=== PATIENT | female | born 1955 | race Caucasian/White ===

== ENCOUNTER 2016-08-20 21:59 | Emergency (ER) | payer OTHER, MEDICAID ==
[2016-08-20 22:10] VITALS: BP 159/86; BMI 22.1
[2016-08-20 23:02] LABS: CKMB % 2.2 % (<4); CREATINE KINASE 46 Units/L (26-192); CREATINE KINASE MB < 1.0 ng/mL (0-4.0); TROPONIN I < 0.02 ng/mL (0-1.5)
--- NOTE | 2016-08-20 23:03 | RAD ---
EXAM: Chest X-ray INDICATION: Chest pain COMPARISION: Prior exam from December 11, 2011 TECHNIQUE: AP, single view FINDINGS: The lungs are clear in the lung volumes are within normal limits. No pleural effusion or pneumothora x. The cardiac silhouette and mediastinum are normal. The regional skeleton is intact. IMPRESSION: Normal Chest X-Ray Reported By:
--- NOTE | 2016-08-20 23:21 | DR.CP ---
HPI - Time Seen Time seen: 23:00 - PCP Primary Care Physician: SIMON - HPI Comment HPI Comment: HISTORY BELOW. PAIN NOT COMPLETELY GONE BUT MUCH IMPROVE. - Complaint Chief Complaint Doctor Comments: EPIGASTRIC PAIN RADIATING TO LT ARM FOR 2 HRS. RESOLVE WITH ANTACIDS. HAVE 3.5CM STABLE AORTIC ANEURYSM. PENDING CHECK IN THIS YEAR. NO HISTORY OF INTERMITTENT CLAUDICATIONS. HAD NAUSEA AND SLIGHT SOB TONIGHT. Chief Complaint:: CHEST PRESSURE / EPIGASTRIC FOR 2 HOURS AND LEFT ARM NUMBNESS. I DO HAVE BAD ACID REFLUX. I HAVE A AORTIC ANEURYSM TOO. Self Treatment fo Chief Complaint: ASPIRIN, ACID REFLUX MEDS - Reviewed Nurses Notes Review: Yes - Source History Provided: Patient - Mode of Arrival Mode of Arrival: Ambulatory - Timing Onset of Chief Complaint: 08/20/16 Came on: Suddenly - Duration Duration: Since Onset Duration: Days - Location Chest Pain Radiation Location: Left Jaw, Left Arm (AND HAND) - Context Onset: At rest Cardiac Risk Factors: Smoker PE Risk Factors: None History of: Similar pain in the past, Aspirin in last 24 hours Prehospital Care: None - Quality Quality: Pressure like - Severity Severity: Moderate - Modifying Factors Worsens: Nothing Impoves: Nothing - Associated Signs and Symptoms Associated Signs and Symptoms: Other PMH - PMH Past Medical History: Yes Past Medical History: Anxiety, Depression, GERD, Headaches, Hypertension, Hyperthyroidism, PUD Past Medical History Comment: AORTIC ANEURYSM Past Surgical History: Yes Surgical History: , Hysterectomy - Family History History of Family Medical Conditions: Yes Family Medical History: Diabetes Mellitus, Cancer, [place], Coronary Artery Disease, Sudden Cardiac , Hypertension - Social History Type of Tobacco Use: Cigarettes Alcohol Use: None Do you use any recreational Drugs:: No Lives With: Alone Lives Where: Home - infectious screening Have you traveled outside the country in the last 6 months?: No Isolation: Standard ROS - Review of Systems Constitutional: No Symptoms Reported Eyes: No Symptoms Reported ENTM: No Symptoms Reported Respiratoy: No Symptoms Reported Cardiovascular: Chest Pain Genitourinary: No Symptoms Reported Neurological: No Symptoms Reported. negative: Headache, Weakness, Dizziness Musculoskeletal: No Symptoms Reported Integumentary: No Symptoms Reported Hematologic/Lymphatic: No Symptoms Reported Endocrine: No Symptoms Reported All Other Systems: Reviewed and Negative PE - Vitals Vitals: Temperature 98.1 F Pulse Rate 65 Respiratory Rate 20 Blood Pressure [Left Arm] 174/81 Blood Pressure 159/86 O2 Sat by Pulse Oximetry 100 - General Limitations: No Limitations General Appearance: Alert - Head Head Exam: Normal Inspection - Eyes Eye exam: Normal Appearance - ENT ENT Exam: Normal External Ear Exam - Chest Chest Inspection: Symmetric Chest Wall Rise - Respiratory Respiratory Exam: Normal Lung Sounds Bilat Respiratory Exam: Bilateral Clear to Auscultation - Cardiovascular Cardiovascular Exam: Regular Rate, Normal Rhythm, Normal Heart Sounds - Abdominal Exam Abdominal Exam: Normal Inspection, Normal Bowel Sounds. negative: Tenderness - Extremities Extremities Exam: Normal Inspection - Back Back Exam: Normal Inspection - Neurologic Neurological Exam: Alert, Oriented X3, CN II-XII Intact, Normal Gait, Reflexes Normal. negative: Motor Sensory Deficit - Psychiatric Psychiatric Exam: Normal Affect, Normal Mood - Skin Skin Exam: Normal Color MDM - Differential Diagnosis Differential Diagnosis: Angina, Costochondritis, Esophageal Reflux/Spasm, Gastritis, Myocardial Infarction, Pericarditis, Pleuritis, Pancreatitis, Pneumonia, Pneumothorax Course - Treatment Treatment: SEE ORDERS, PATIENT SIGN AMA. DID NOT WISH TO STAY FOR OBSERVATION IN THE HOSPITAL. - Education/Counseling Education/Counseling: Patient, Family, Education Educated On: Diagnosis, Needs for Follow Up ROR - Labs Reviewed Laboratory Results Reviewed?: Yes Laboratory: Creatine Kinase 46 Units/L (26-192) 08/20/16 22:30 CK-MB (CK-2) < 1.0 ng/mL (0-4.0) 08/20/16 22:30 CK/CKMB % Calc 2.2 % (<4) 08/20/16 22:30 Troponin I < 0.02 ng/mL (0-1.5) 08/20/16 22:30 - XRAY XRAY Interpreted by: Radiologist XRAY Findings: REPORT DISCUSS WITH PATIENT. - EKG Rhythm: NSR (EKG NOTED.) - Diagnosis Discharge Problem: Chest pain Qualifiers: Chest pain type: unspecified Qualified Code(s): R07.9 - Chest pain, unspecified - Discharge Plan Disposition: AGAINST MEDICAL ADVICE Condition: Stable - Follow ups/Referrals Follow ups/Referrals: JOSELIN MONTES [Primary Care Provider] - 3 days - Instructions Instructions: Chest Pain Observation Additional Instructions: RETURN TO ED SOON POSSIBLE. YOU ARE DISCHARGE AGAINST MEDICAL ADVICE. OBSERVATION IN THE HOSPITAL FOR CHEST PRESSURE GOING INTO YOUR LEFT ARM. YOU WISH TO GO HOME.
== END 2016-08-20 23:36 | disposition left against medical advice (07) ==
LOC: ER 21:59
DX: R07.89 Other chest pain (principal)
CPT/HCPCS: 36415; 71010; 82550; 82553; 84484; 93005; 93010; 99283

== ENCOUNTER 2017-02-10 21:05 | Emergency (ER) | payer OTHER, MEDICAID ==
[2017-02-10 21:16] VITALS: BMI 22.6
--- NOTE | 2017-02-10 21:34 | DR.GENAD ---
HPI - PCP Primary Care Physician: naveed etienne - HPI Comment HPI Comment: PATIENT HAVE ARTHRTIS AND PREVIOUS NECK SURGERY. SHE DID HIT HER HEAD WHEN SHE FELL. TOOK ASPRIN AND HER PAIN MED BEFORWE COMING. HAVE SLIGH PRESSURE IN HER CHEST STILL. PAIN IN HER ARMS IS RESOLVE CURRENTLY. NO FEVER. - Complaint/Symptoms Chief Complaint Doctors Comments: NUMNESS ARMS FOR FEW HOURS.FELL FEW DAYS AGO, HEADACHE AND INCREASING NEC PAIN. Chief Complaint:: thinks she may be having a stroke or some nerve problems, right arm went numb first then left arm went numb and shoulders are real tense also having chest pain. started 3 hours ago Self Treatment fo Chief Complaint: aspirin 81mg 30 mins ago, 1/2 of hydrocodone 7.5mg ang 1 otc aleve - Nurses notes reviewed Nurses Notes Review: Yes - Source History Provided: Patient - Mode of Arrival Mode of Arrival: Wheelchair - Timing Onset of Chief Complaint: 02/10/17 Came on: Suddenly - Duration Duration: Since Onset Duration: Hours - Severity Severity: Moderate PMH - PMH Past Medical History: Yes Past Medical History: Anxiety, Depression, GERD, Headaches, Hypertension, Hyperthyroidism, PUD Past Surgical History: Yes Surgical History: , Cholecystectomy, Hysterectomy, Joint Replacement - Family History History of Family Medical Conditions: Yes Family Medical History: Diabetes Mellitus, Cancer, [place], Coronary Artery Disease, Sudden Cardiac , Hypertension - Social History Does patient currently use any type of tobacco product: Yes Have you used tobacco products in the last 12 months: Yes Type of Tobacco Use: Cigarettes How many years tobacco product used: 40 Does any household member use tobacco: No Alcohol Use: None Do you use any recreational Drugs:: No Lives With: Alone Lives Where: Home - infectious screening In the last 2 months have you had wt loss of >10#?: NO Have you had fever, night sweats or hemotysis?: No Have you traveled outside the country in the last 6 months?: No Isolation: Standard ROS - Review of Systems Constitutional: Weakness, Fatigue. negative: Chills, Fever Eyes: negative: Eye Pain, Discharge ENTM: negative: Ear Pain, Nose Discharge, Nose Congestion, Throat Pain Respiratoy: Short of Breath. negative: Productive Cough, Non-Productive Cough, Wheezing, Hemoptysis Cardiovascular: Chest Pain. negative: Edema, Palpitations Gastrointestinal/Abdominal: No Symptoms Reported. negative: Abdominal Pain, Diarrhea, Nausea, Vomiting Genitourinary: No Symptoms Reported. negative: Dysuria, Frequency, Hematuria Neurological: Headache, Numbness, Paresthesia, Weakness Musculoskeletal: Joint Pain, Muscle Pain Integumentary: No Symptoms Reported Hematologic/Lymphatic: No Symptoms Reported Endocrine: No Symptoms Reported All Other Systems: Reviewed and Negative PE - Vital Signs Vitals: Temperature 98.5 F Pulse Rate [Left Brachial] 61 Pulse Rate 81 Respiratory Rate 16 Blood Pressure [Left Arm] 137/63 Blood Pressure 169/95 O2 Sat by Pulse Oximetry 100 - General Limitations: No Limitations General Appearance: Alert - Head Head Exam: Normal Inspection - Eyes Eye exam: Normal Appearance - ENT ENT Exam: Normal External Ear Exam TM/Canal Exam: Bilateral Normal Mouth Exam: Normal Inspection Throat Exam: Normal Inspection - Neck Neck Exam: Tenderness (POSERIOR LOWER NECK TENDERNESS, TENSE PARAVERTEBRA MUSCLES.) - Chest Chest Inspection: Symmetric Chest Wall Rise - Respiratory Respiratory Exam: Normal Lung Sounds Bilat Respiratory Exam: Bilateral Rhonchi, Lower Rhonchi - Cardiovascular Cardiovascular Exam: Regular Rate, Normal Rhythm, Normal Heart Sounds - Abdominal Exam Abdominal Exam: Normal Inspection - Extremities Extremities Exam: Normal Inspection - Back Back Exam: Paraspinal Tenderness (NECK), Vertebral Tenderness (LOWER CERVICAL SPINE) - Neurologic Neurological Exam: Alert, Oriented X3, CN II-XII Intact, Normal Gait, Reflexes Normal. negative: Motor Sensory Deficit - Psychiatric Psychiatric Exam: Normal Affect, Normal Mood - Skin Skin Exam: Normal Color MDM - Additional Information Additional Information Obtained From: Family - Differential Diagnosis Differential Diagnosis: NECK PAIN, HEADACHE, ARTHRITIS, HEAD TRAUMA, NECK TRAUMA Course - Treatment Treatment: SEE ORDERS - Education/Counseling Education/Counseling: Patient, Family, Education Educated On: Diagnosis, Needs for Follow Up ROR - Labs Reviewed Laboratory Results Reviewed?: Yes Result Diagrams: 02/10/17 21:40 02/10/17 21:40 Laboratory: WBC 9.4 X10^3/uL (3.6-10.0) 02/10/17 21:40 RBC 4.35 X10^6/uL (3.5-5.4) 02/10/17 21:40 Hgb 13.0 g/dL (12.0-16.0) 02/10/17 21:40 Hct 38.0 % (36.0-47.0) 02/10/17 21:40 MCV 87.3 fL (80.0-100.0) 02/10/17 21:40 MCH 29.8 pg (27.0-34.0) 02/10/17 21:40 MCHC 34.1 g/dL (33.0-35.0) 02/10/17 21:40 RDW 13.1 % (11.6-16.5) 02/10/17 21:40 Plt Count 170 X10^3/uL (150.0-450.0) 02/10/17 21:40 MPV 10.4 fL (7.4-11.0) 02/10/17 21:40 Neut % 40.8 % (42.0-75.0) L 02/10/17 21:40 Lymph % 46.9 % (21.0-51.0) 02/10/17 21:40 [place] % 8.5 % (0.0-13.0) 02/10/17 21:40 Eos % 3.3 % (0.9-2.9) H 02/10/17 21:40 Baso % 0.5 % (0.2-1.0) 02/10/17 21:40 Neut # 3.8 x10^3/uL (2.2-4.8) 02/10/17 21:40 Lymph # 4.4 X10^3/uL (1.3-2.9) H 02/10/17 21:40 [place] # 0.8 x10^3/uL (0.3-0.8) 02/10/17 21:40 Eos # 0.3 x10^3/uL (0.0-0.2) H 02/10/17 21:40 Baso # 0.0 X10^3/uL (0.0-0.1) 02/10/17 21:40 Absolute Nucleated RBC 0.0 /100WBC 02/10/17 21:40 Sodium 142 mmol/L (136-145) 02/10/17 21:40 Corrected Sodium TNP 02/10/17 21:40 Potassium 3.8 mmol/L (3.5-5.1) 02/10/17 21:40 Chloride 105 mmol/L (98-107) 02/10/17 21:40 Carbon Dioxide 30.9 mmol/L (21-32) 02/10/17 21:40 BUN 6 mg/dL (7-18) L 02/10/17 21:40 Creatinine 0.95 mg/dL (0.55-1.02) 02/10/17 21:40 Est GFR (MDRD) Af Amer > 60 (>60) 02/10/17 21:40 Est GFR (MDRD) Non-Af > 60 (>60) 02/10/17 21:40 Glucose 101 mg/dL (65-99) H 02/10/17 21:40 Calcium 8.9 mg/dL (8.5-10.1) 02/10/17 21:40 Corrected Calcium TNP 02/10/17 21:40 Total Bilirubin 0.20 mg/dL (0.2-1.0) 02/10/17 21:40 AST 18 Units/L (15-37) 02/10/17 21:40 ALT 18 Units/L (12-78) 02/10/17 21:40 Alkaline Phosphatase 79 Units/L (46-116) 02/10/17 21:40 Creatine Kinase 107 Units/L (26-192) 02/10/17 21:40 CK-MB (CK-2) 1.0 ng/mL (0-4.0) 02/10/17 21:40 CK/CKMB % Calc 0.9 % (<4) 02/10/17 21:40 Troponin I < 0.02 ng/mL (0-1.5) 02/10/17 21:40 Total Protein 6.9 g/dL (6.4-8.2) 02/10/17 21:40 Albumin 3.8 g/dL (3.4-5.0) 02/10/17 21:40 Globulin 3.1 g/dL (2.5-4.5) 02/10/17 21:40 Albumin/Globulin Ratio 1.2 Ratio (1.1-2.1) 02/10/17 21:40 - XRAY XRAY Interpreted by: Radiologist XRAY Findings: REPORT DISCUSS WITH PATIENT. - Diagnosis Discharge Problem: Numbness and tingling Chest pain Qualifiers: Chest pain type: precordial pain Qualified Code(s): R07.2 - Precordial pain Head trauma Qualifiers: Encounter type: initial encounter Qualified Code(s): S09.90XA - Unspecified injury of head, initial encounter Neck sprain Qualifiers: Encounter type: initial encounter Qualified Code(s): S13.9XXA - Sprain of joints and ligaments of unspecified parts of neck, initial encounter - Discharge Plan Disposition: HOME, SELF-CARE Condition: Stable - Follow ups/Referrals Follow ups/Referrals: MATIAS ETIENNE [Primary Care Provider] - 3 days - Instructions Instructions: Peripheral Neuropathy, Chest Pain Observation Additional Instructions: RETURN TO ED IF WORSE, CONTINUE WITH MED AT HOME FOR MUSCULOSKELETAL PAIN.
[2017-02-10 21:59] LABS: BASOPHILS % (AUTO) 0.5 % (0.2-1.0); EOSINOPHILS # (AUTO) 0.3 x10^3/uL (0.0-0.2); EOSINOPHILS % (AUTO) 3.3 % (0.9-2.9); LYMPHOCYTES # (AUTO) 4.4 X10^3/uL (1.3-2.9); LYMPHOCYTES % (AUTO) 46.9 % (21.0-51.0); MEAN CORPUSCULAR HEMOGLOBIN 29.8 pg (27.0-34.0); MEAN CORPUSCULAR HGB CONC 34.1 g/dL (33.0-35.0); MEAN CORPUSCULAR VOLUME 87.3 fL (80.0-100.0); MEAN PLATELET VOLUME 10.4 fL (7.4-11.0); MONOCYTES # (AUTO) 0.8 x10^3/uL (0.3-0.8); MONOCYTES % (AUTO) 8.5 % (0.0-13.0); NEUTROPHILS # (AUTO) 3.8 x10^3/uL (2.2-4.8); NEUTROPHILS % (AUTO) 40.8 % (42.0-75.0); PLATELET COUNT 170 X10^3/uL (150.0-450.0); RED BLOOD COUNT 4.35 X10^6/uL (3.5-5.4); RED CELL DISTRIBUTION WIDTH 13.1 % (11.6-16.5); WHITE BLOOD COUNT 9.4 X10^3/uL (3.6-10.0)
[2017-02-10 22:13] LABS: BLOOD UREA NITROGEN 6 mg/dL (7-18); CALCIUM 8.9 mg/dL (8.5-10.1); CARBON DIOXIDE 30.9 mmol/L (21-32); CHLORIDE 105 mmol/L (98-107); CREATININE 0.95 mg/dL (0.55-1.02); SODIUM 142 mmol/L (136-145); TROPONIN I < 0.02 ng/mL (0-1.5); eGFR BLACK RACES > 60 (>60); eGFR NON BLACK RACES > 60 (>60)
[2017-02-10 22:17] LABS: ALANINE AMINOTRANSFERASE 18 Units/L (12-78); ALBUMIN 3.8 g/dL (3.4-5.0); ALKALINE PHOSPHATASE 79 Units/L (46-116); ASPARTATE AMINO TRANSFERASE 18 Units/L (15-37); CKMB % 0.9 % (<4); CREATINE KINASE 107 Units/L (26-192); TOTAL PROTEIN 6.9 g/dL (6.4-8.2)
--- NOTE | 2017-02-10 22:21 | CT ---
HISTORY: Pain after fall Study: CT brain without contrast Comparison: 09/20/2013 Technique: Multiple axial images of the brain were obtained from the skull base to the vertex without administra tion of IV contrast. Dose reduction techniques including Automated Exposure Control (AEC) and adjust ment of mA and kV were utilized. Findings: The brain parenchyma is within normal limits for patient's age. No evidence of acute hemorrhage, mid line shift, mass effect or abnormal extra-axial fluid collection. The ventricular system is symmetri c and nondilated. The soft tissues and osseous structures are unremarkable. There is chronic dense o pacification of the right maxillary sinus as well as maxillary sinus wall thickening compatible with chronic sinusitis. IMPRESSION: 1.No acute intracranial abnormality. 2. Chronic left maxillary sinusitis. Reported By:
--- NOTE | 2017-02-10 22:25 | RAD ---
AP Chest Indication: Fall with left-sided neck pain and arm numbness Comparison: 08/20/2016 Findings: The trachea is midline. The cardiac silhouette is unremarkable. The lungs are clear without focal i nfiltrate or effusion. The bony thorax is unremarkable. IMPRESSION: 1. No acute cardiopulmonary abnormality. Reported By:
[2017-02-11 00:21] VITALS: BP 137/63
== END 2017-02-11 00:10 | disposition home or self-care (01) ==
LOC: ER 21:24
DX: S09.8XXA Other specified injuries of head, initial encounter (principal); S13.9XXA Sprain of joints and ligaments of unspecified parts of neck, initial encounter; R07.2 Precordial pain; R20.0 Anesthesia of skin; W19.XXXA Unspecified fall, initial encounter; Y92.9 Unspecified place or not applicable
CPT/HCPCS: 36415; 70450; 71010; 80053; 82550; 82553; 84484; 85025; 93005; 99283; 99285

== ENCOUNTER 2017-03-03 11:41 | Emergency (ER) | payer OTHER, MEDICAID ==
[2017-03-03 11:47] VITALS: BP 147/85; BMI 22.6
--- NOTE | 2017-03-03 12:17 | DR.GENAD ---
HPI - PCP Primary Care Physician: nina etienne - HPI Comment HPI Comment: HISTORY BELOW. - Complaint/Symptoms Chief Complaint Doctors Comments: MOUSE BITE LAST NIGHT. PUNTURE WOUND RT INDEX FINGER. TD UTD. Chief Complaint:: patient stated she was bite by a mouse that was caught on a trap last night. she stated that the internet said she needed medical assistance. - Nurses notes reviewed Nurses Notes Review: Yes - Source History Provided: Patient - Mode of Arrival Mode of Arrival: Ambulatory - Timing Onset of Chief Complaint: 03/02/17 Came on: Suddenly - Duration Duration: Constant Duration: Hours - Severity Severity: Moderate PMH - PMH Past Medical History: Yes Past Medical History: Anxiety, Depression, GERD, Headaches, Hypertension, Hyperthyroidism, PUD Past Surgical History: Yes Surgical History: , Cholecystectomy, Hysterectomy, Joint Replacement - Family History History of Family Medical Conditions: Yes Family Medical History: Diabetes Mellitus, Cancer, [place], Coronary Artery Disease, Sudden Cardiac , Hypertension - Social History Does patient currently use any type of tobacco product: Yes Have you used tobacco products in the last 12 months: Yes Type of Tobacco Use: Cigarettes How many years tobacco product used: 50 Does any household member use tobacco: No Alcohol Use: None Do you use any recreational Drugs:: No Lives With: Alone Lives Where: Home - infectious screening In the last 2 months have you had wt loss of >10#?: NO Have you had fever, night sweats or hemotysis?: No Have you traveled outside the country in the last 6 months?: No Isolation: Standard ROS - Review of Systems Constitutional: No Symptoms Reported Eyes: No Symptoms Reported ENTM: No Symptoms Reported Respiratoy: No Symptoms Reported Cardiovascular: No Symptoms Reported Gastrointestinal/Abdominal: No Symptoms Reported Genitourinary: No Symptoms Reported Neurological: No Symptoms Reported Musculoskeletal: Right, Hand Integumentary: Wound (PUNCTURE WOUND RT INDEX FINGER.) Endocrine: No Symptoms Reported All Other Systems: Reviewed and Negative PE - Vital Signs Vitals: Temperature 98.2 F Pulse Rate 82 Respiratory Rate 16 Blood Pressure [Left Arm] 137/63 Blood Pressure 147/85 O2 Sat by Pulse Oximetry 100 - General Limitations: No Limitations General Appearance: Alert - Head Head Exam: Normal Inspection - Eyes Eye exam: Normal Appearance - ENT ENT Exam: Normal External Ear Exam TM/Canal Exam: Bilateral Normal Nose Exam: Normal Nose Exam Mouth Exam: Normal Inspection Throat Exam: Normal Inspection - Neck Neck Exam: Normal Inspection - Chest Chest Inspection: Symmetric Chest Wall Rise - Respiratory Respiratory Exam: Normal Lung Sounds Bilat Respiratory Exam: Bilateral Clear to Auscultation - Cardiovascular Cardiovascular Exam: Regular Rate, Normal Rhythm, Normal Heart Sounds - Abdominal Exam Abdominal Exam: Normal Inspection - Extremities Extremities Exam: Tenderness (RT INDEX FINGER WITH SMALL PUNCTURE WOUND. SLIGHT REDNESS.) - Back Back Exam: Normal Inspection - Neurologic Neurological Exam: Alert, Oriented X3 - Psychiatric Psychiatric Exam: Normal Affect, Normal Mood - Skin Skin Exam: Erythema MDM - Differential Diagnosis Differential Diagnosis: MOUSE BITE, PUNTURE WOUND. Course - Treatment Treatment: SEE ORDERS - Education/Counseling Education/Counseling: Patient, Education Educated On: Diagnosis, Needs for Follow Up - Diagnosis Discharge Problem: Bitten by mouse, initial encounter - Discharge Plan Disposition: 01 HOME, SELF-CARE Condition: Stable Prescriptions: Doxycycline Monohydrate 100 mg PO BID #20 tablet Ibuprofen [MOTRIN TAB 600 MG *] 600 mg PO TID PRN #20 tab PRN Reason: Pain/Inflammation - Follow ups/Referrals Follow ups/Referrals: NINA ETIENNE [Primary Care Provider] - 3 days - Instructions Instructions: Animal Bite Additional Instructions: RETURN TO ED IF WORSE.
== END 2017-03-03 12:39 | disposition home or self-care (01) ==
LOC: ER 11:58
DX: S61.230A Puncture wound without foreign body of right index finger without damage to nail, initial encounter (principal); W53.01XA Bitten by mouse, initial encounter; Y92.9 Unspecified place or not applicable
CPT/HCPCS: 99281; 99282

== ENCOUNTER 2024-01-27 13:33 | Inpatient (IN) ==
--- NOTE | 2024-01-27 15:11 | DR.EXTPAIN ---
HPI Time seen Time Seen by Provider: 01/27/24 15:06 PCP Primary Care Physician: ramonita HPI Comment HPI Comment: history as below. Complaint/Symptoms Chief Complaint Doctor Comments: Patient is 69yr old female in ER with nausea and vomiting that started 2hrs ago. Chief Complaint:: Patient c/o of epigastric pain radiating around to her back that started about 2 hours ago along with a little vomiting patient states she is constipated but did have normal good bowel movement lastnight. Self Treatment fo Chief Complaint: pepcid, prilosec COVID-19 Coronavirus risk:travel/contact w/high risk person: No Has patient experienced Coronavirus symptoms: No Nurses notes reviewed Nurses Notes Review: Yes Source History Provided: Patient Mode of arrival Mode of Arrival: Ambulatory Timing Onset of Chief Complaint: 01/27/24 PMH PMH Past Medical History: Yes Past Medical History: COPD, Dyslipidemia, GERD, Hypertension and Hyperthyroidism Past Medical History Comment: lupus Past Surgical History: Yes Surgical History: , Cholecystectomy, Hysterectomy and Ortho Surgery Past Surgical History Comment: knee Family History History of Family Medical Conditions: Yes Family Medical History: Diabetes Mellitus Social History Does patient currently use any type of tobacco product: Yes Have you used tobacco products in the last 12 months: Yes Does any household member use tobacco: Yes Alcohol Use: None Do you use any recreational Drugs:: No Lives With: Alone Lives Where: Home Travel Risk Coronavirus risk:travel/contact w/high risk person: No Has patient experienced Coronavirus symptoms: No Infectious screening In the last 2 months have you had wt loss of >10#?: NO Have you had fever, night sweats or hemotysis?: No Have you traveled outside the country in the last 6 months?: No Isolation: Standard PE Vital Signs Vitals: Vital Signs Temperature 98.4 F Pulse Rate 80 Respiratory Rate 18 Blood Pressure 174/77 O2 Sat by Pulse Oximetry 98 ROR Labs Reviewed 01/29/24 05:16 01/29/24 05:16 Laboratory: WBC 8.2 X10^3/uL (3.6-10.0) 01/27/24 16:40 RBC 4.86 X10^6/uL (3.5-5.4) 01/27/24 16:40 Hgb 14.2 g/dL (12.0-16.0) 01/27/24 16:40 Hct 42.1 % (36.0-47.0) 01/27/24 16:40 MCV 86.7 fL (80.0-100.0) 01/27/24 16:40 MCH 29.2 pg (27.0-34.0) 01/27/24 16:40 MCHC 33.7 g/dL (33.0-35.0) 01/27/24 16:40 RDW 15.0 % (11.6-16.5) 01/27/24 16:40 Plt Count 176 X10^3/uL (150.0-450.0) 01/27/24 16:40 Plt Count Comment Adequate (ADEQUATE) 01/27/24 16:40 MPV 10.4 fL (7.4-11.0) 01/27/24 16:40 Neut % (Auto) 91.9 % (42.0-75.0) H 01/27/24 16:40 Lymph % (Auto) 6.5 % (21.0-51.0) L 01/27/24 16:40 [place] % (Auto) 0.9 % (0.0-13.0) 01/27/24 16:40 Eos % (Auto) 0.3 % (0.9-2.9) L 01/27/24 16:40 Baso % (Auto) 0.4 % (0.2-1.0) 01/27/24 16:40 Neut # (Auto) 7.5 x10^3/uL (2.2-4.8) H 01/27/24 16:40 Lymph # (Auto) 0.5 X10^3/uL (1.3-2.9) L 01/27/24 16:40 [place] # (Auto) 0.1 x10^3/uL (0.3-0.8) L 01/27/24 16:40 Eos # (Auto) 0.0 x10^3/uL (0.0-0.2) 01/27/24 16:40 Baso # (Auto) 0.0 X10^3/uL (0.0-0.1) 01/27/24 16:40 Absolute Nucleated RBC 0.1 /100WBC 01/27/24 16:40 Total Counted 100 01/27/24 16:40 Neutrophils % (Manual) 90 % (39-76) H 01/27/24 16:40 Lymphocytes % (Manual) 9 % (13-43) L 01/27/24 16:40 Monocytes % (Manual) 1 % (4-9) L 01/27/24 16:40 Plt Morphology Comment Normal (NORMAL) 01/27/24 16:40 RBC Morphology Normal (NORMAL) 01/27/24 16:40 Sodium 143 mmol/L (136-145) 01/27/24 16:40 Corrected Sodium TNP 01/27/24 16:40 Potassium 3.7 mmol/L (3.5-5.1) 01/27/24 16:40 Chloride 105 mmol/L (98-107) 01/27/24 16:40 Carbon Dioxide 31.1 mmol/L (21-32) 01/27/24 16:40 BUN 4 mg/dL (7-18) L 01/27/24 16:40 Creatinine 1.04 mg/dL (0.55-1.02) H 01/27/24 16:40 Est GFR (MDRD) Af Amer > 60 (>60) 01/27/24 16:40 Est GFR (MDRD) Non-Af 56 (>60) L 01/27/24 16:40 Glucose 85 mg/dL (65-99) 01/27/24 16:40 Calcium 8.9 mg/dL (8.5-10.1) 01/27/24 16:40 Corrected Calcium 9.5 mg/dL (8.5-10.1) 01/27/24 16:40 Total Bilirubin 1.60 mg/dL (0.2-1.0) H 01/27/24 16:40 AST 188 Units/L (15-37) H 01/27/24 16:40 ALT 101 Units/L (12-78) H 01/27/24 16:40 Alkaline Phosphatase 197 Units/L (46-116) H 01/27/24 16:40 Total Protein 7.0 g/dL (6.4-8.2) 01/27/24 16:40 Albumin 3.2 g/dL (3.4-5.0) L 01/27/24 16:40 Globulin 3.8 g/dL (2.5-4.5) 01/27/24 16:40 Albumin/Globulin Ratio 0.8 Ratio (1.1-2.1) L 01/27/24 16:40 Amylase 1402 Units/L (25-115) H 01/27/24 16:40 Lipase 3621 Units/L (16-77) H 01/27/24 16:40 SARS-CoV-2 (PCR) Negative (NEGATIVE) 01/27/24 15:11 Influenza Type A (PCR) Negative (NEGATIVE) 01/27/24 15:11 Influenza Type B (PCR) Negative (NEGATIVE) 01/27/24 15:11 RSV (PCR) Negative (NEGATIVE) 01/27/24 15:11 Opioid Opioid Risk Tool Age (Brayden box if 16-45): No History of Preadolescent Sexual Abuse: No Total: 0 Total Score Risk Category: Low Risk Copyright: Vasquez GARCIA predicting aberrant behaviors Discharge Plan Discharge Plan Patient Disposition: 09 ADMITTED INPATIENT Condition: Stable Prescription drug monitoring program results: PDMP reviewed and no concerns identified
[2024-01-27] MEDS: ZOFRAN INJ 4 MG VIAL IVP ONE ×2 (15:13→16:33)
[2024-01-27] MEDS: ZOFRAN INJ 4 MG VIAL IM ONE (15:13)
[2024-01-27 16:37] LABS: MEAN PLATELET VOLUME 10.4 fL (7.4-11.0); MONOCYTES # (AUTO) 0.1 x10^3/uL (0.3-0.8)
[2024-01-27 16:41] LABS: BASOPHILS % (AUTO) 0.4 % (0.2-1.0); EOSINOPHILS % (AUTO) 0.3 % (0.9-2.9); HEMATOCRIT 42.1 % (36.0-47.0); HEMOGLOBIN 14.2 g/dL (12.0-16.0); LYMPHOCYTES # (AUTO) 0.5 X10^3/uL (1.3-2.9); LYMPHOCYTES % (AUTO) 6.5 % (21.0-51.0); MEAN CORPUSCULAR HEMOGLOBIN 29.2 pg (27.0-34.0); MEAN CORPUSCULAR HGB CONC 33.7 g/dL (33.0-35.0); MEAN CORPUSCULAR VOLUME 86.7 fL (80.0-100.0); MONOCYTES % (AUTO) 0.9 % (0.0-13.0); NEUTROPHILS # (AUTO) 7.5 x10^3/uL (2.2-4.8); NEUTROPHILS % (AUTO) 91.9 % (42.0-75.0); PLATELET COUNT 176 X10^3/uL (150.0-450.0); RED BLOOD COUNT 4.86 X10^6/uL (3.5-5.4); WHITE BLOOD COUNT 8.2 X10^3/uL (3.6-10.0)
[2024-01-27 17:08] LABS: PLATELET MORPHOLOGY COMMENT NORMAL (NORMAL)
[2024-01-27 17:10] LABS: ALANINE AMINOTRANSFERASE 101 Units/L (12-78); ALBUMIN 3.2 g/dL (3.4-5.0); ALKALINE PHOSPHATASE 197 Units/L (46-116); ASPARTATE AMINO TRANSFERASE 188 Units/L (15-37); BLOOD UREA NITROGEN 4 mg/dL (7-18); CALCIUM 8.9 mg/dL (8.5-10.1); CARBON DIOXIDE 31.1 mmol/L (21-32); CHLORIDE 105 mmol/L (98-107); COR CA(FOR HYPOALB) 9.5 mg/dL (8.5-10.1); CREATININE 1.04 mg/dL (0.55-1.02); GLUCOSE 85 mg/dL (65-99); POTASSIUM 3.7 mmol/L (3.5-5.1); SODIUM 143 mmol/L (136-145); eGFR NON BLACK RACES 56 (>60)
[2024-01-27 17:22] LABS: AMYLASE 1402 Units/L (25-115)
[2024-01-27 17:51] LABS: LIPASE 3621 Units/L (16-77)
--- NOTE | 2024-01-27 17:59 | CT ---
EXAM:ABDOMEN/PELVIS W/O CONHISTORY:Epigastric pain.COMPARISON:None.TECHNIQUE:Multiple axial images of the abdomen and pelvis were obtained from the lung bases to the pubic symphysis after the administration of IV contrast.FINDINGS:Paraseptal emphysematous changes of the lung bases are noted without basilar consolidation or pleural effusion. The gallbladder is surgically absent. The liver is grossly unremarkable. There is diffuse peripancreatic stranding without organized or drainable fluid collection. Subtle hyperdensities are near within the region of the pancreatic head suggesting possible obstructing stones. Mild stranding is noted within the region of the duodenum and is thought to be reactive. The spleen, adrenal glands and kidneys are unremarkable in their noncontrast CT appearance. There are no stones along the course of either ureter or within the lumen of the well distended urinary bladder. Tiny bilateral pelvic phleboliths are present. The appendix is normal. The colon is grossly unremarkable. There is no small bowel dilatation. There is no intraperitoneal free air or free fluid. There is atherosclerotic disease of the nonaneurysmal abdominal aorta. The bony structures are grossly unremarkable.IMPRESSION:1. Acute uncomplicated pancreatitis with suspected obstructing stones near the region of the pancreatic head. GI consultation recommended.2. Probable reactive duodenitis.THIS IS AN ELECTRONICALLY VERIFIED FINAL [id number]/27/2024 5:56 PM - Electronically signed by Riki Schuler MD
[2024-01-27] MEDS: LEVAQUIN PREMIX IV 500 MG 500 MG/100 ML BAG IV SCH (19:58)
[2024-01-27] MEDS ORDERED: PROVENTIL NEB TX 0.083% 2.5MG/ 3ML NEB PRN (20:38)
[2024-01-27 21:13] VITALS: BMI 26.2
[2024-01-27] MEDS: ZOFRAN INJ 4 MG VIAL IVP PRN (21:16)
[2024-01-27] MEDS: PROTONIX INJ 40 MG VIAL IVP SCH (21:16)
[2024-01-27] MEDS: NS 1,000 ML IV 1,000 ML IV SCH (21:16)
[2024-01-27] MEDS: MORPHINE SULFATE INJ 2 MG INJ IVP PRN (21:17)
[2024-01-27 23:31] LABS: BILIRUBIN,URINE NEGATIVE (NEGATIVE); BLOOD/HEMOGLOBIN,URINE 1+ (NEGATIVE); GLUCOSE, URINE NEGATIVE (NEGATIVE); KETONES,URINE NEGATIVE (NEGATIVE); LEUKOCYTE ESTERASE ,URINE NEGATIVE (NEGATIVE); NITRITES,URINE NEGATIVE (NEGATIVE); PROTEIN,URINE 1+ (NEGATIVE); UROBILINOGEN,URINE 1+ (NORMAL)
[2024-01-27 23:41] LABS: APPEARANCE,URINE HAZY (CLEAR); BACTERIA,URINE TRACE /HPF (NEGATIVE); COLOR,URINE DARK YELLOW (YELLOW); SQUAMOUS EPITHELIAL CELL,UR FEW /HPF (NEGATIVE)
[2024-01-27 23:42] LABS: COARSE GRANULAR CASTS,URINE RARE /HPF (NEGATIVE)
[2024-01-28 05:35] LABS: BASOPHILS % (AUTO) 0.2 % (0.2-1.0); HEMATOCRIT 33.7 % (36.0-47.0); HEMOGLOBIN 11.4 g/dL (12.0-16.0); LYMPHOCYTES % (AUTO) 7.4 % (21.0-51.0); MEAN CORPUSCULAR HEMOGLOBIN 29.1 pg (27.0-34.0); MEAN CORPUSCULAR HGB CONC 33.9 g/dL (33.0-35.0); MEAN CORPUSCULAR VOLUME 85.9 fL (80.0-100.0); MEAN PLATELET VOLUME 10.2 fL (7.4-11.0); MONOCYTES # (AUTO) 0.8 x10^3/uL (0.3-0.8); MONOCYTES % (AUTO) 5.9 % (0.0-13.0); NEUTROPHILS # (AUTO) 11.5 x10^3/uL (2.2-4.8); NEUTROPHILS % (AUTO) 86.5 % (42.0-75.0); PLATELET COUNT 132 X10^3/uL (150.0-450.0); RED BLOOD COUNT 3.92 X10^6/uL (3.5-5.4); RED CELL DISTRIBUTION WIDTH 15.2 % (11.6-16.5); WHITE BLOOD COUNT 13.3 X10^3/uL (3.6-10.0)
[2024-01-28 05:44] LABS: ALANINE AMINOTRANSFERASE 70 Units/L (12-78); ALBUMIN 2.4 g/dL (3.4-5.0); ALKALINE PHOSPHATASE 129 Units/L (46-116); AMYLASE 446 Units/L (25-115); ASPARTATE AMINO TRANSFERASE 74 Units/L (15-37); BLOOD UREA NITROGEN 10 mg/dL (7-18); CALCIUM 8.1 mg/dL (8.5-10.1); CARBON DIOXIDE 29.9 mmol/L (21-32); CHLORIDE 107 mmol/L (98-107); COR CA(FOR HYPOALB) 9.4 mg/dL (8.5-10.1); CREATININE 0.93 mg/dL (0.55-1.02); GLUCOSE 104 mg/dL (65-99); SODIUM 144 mmol/L (136-145); TOTAL PROTEIN 5.8 g/dL (6.4-8.2); eGFR NON BLACK RACES > 60 (>60)
[2024-01-28 05:47] LABS: LIPASE 534 Units/L (16-77)
--- NOTE | 2024-01-28 08:28 | RAD ---
EXAM:KUBHISTORY:PancreatitisCOMPARISON: .br.br.br.br.br.br nonobstructed gas pattern. No definite mass, calcification or abnormal fluid collection. Surgical clips right upper quadrant.IMPRESSION:No abnormality identified.THIS IS AN ELECTRONICALLY VERIFIED FINAL [id number]/2024 8:24 AM - Electronically signed by Obey Jeffery MD
[2024-01-28] MEDS: ZOFRAN INJ 4 MG VIAL ONE (10:34)
[2024-01-28] MEDS: LEVAQUIN PREMIX IV 500 MG 500 MG/100 ML BAG IV ONE (10:35)
--- NOTE | 2024-01-28 14:57 | DR.H&P ---
H&P History & Physical for Day of: H&P Date: 01/28/24 Chief Complaint Chief Complaint: Abdominal pain. History of Present Illness History of Present Illness: Seen with nurse and dtr at bedside. Feeling much better today. Willing to discuss care with surgeon. No overnight vomiting or diarrhea. Pt to ER from home due to weakness, delirium, and worsening po intake due to severe abdominal pain. Found to have elevated amylase/lipase and pancreatic duct obstruction with uncomplicated pancreatitis. ROS: 12pt ROS otherwise negative. PE: WD, WN female in NAD. NCAT. Hearing intact to conversation. EOMI. Neck with FROM. RRR. CTA b/l. Bowel sounds present, NT, ND, soft. No edema of extremities. Mood/affect appropriate. A&Ox4. Past Medical History Past Medical History: COPD, Dyslipidemia, GERD, Hypertension and Hyperthyroidism Additional Medical History: Hx Hiatal Hernia, Fibromyalgia, Degenerative Disc Disease Past Surgical History Surgical History: , Cholecystectomy, Hysterectomy and Ortho Surgery Family History Family Medical History: Diabetes Mellitus Social History Does patient currently use any type of tobacco product: Yes Have you used tobacco products in the last 12 months: Yes Type of Tobacco Use: Cigarettes How many years tobacco product used: 50 Does any household member use tobacco: Yes Alcohol Use: None Drug Use: None Medications Home Medications: Home Medications Medication Instructions Recorded Confirmed Type famotidine 40 mg tablet 40 mg PO DAILY 04/11/20 01/27/24 History hydrocodone 7.5 mg-acetaminophen 1 tab PO QID PRN 04/11/20 01/27/24 History 325 mg tablet lisinopril 10 mg tablet 10 mg PO DAILY 04/11/20 01/27/24 History montelukast 10 mg tablet 10 mg PO DAILY 04/11/20 01/27/24 History pantoprazole 40 mg tablet,delayed 40 mg PO DAILY 04/11/20 01/27/24 History release atorvastatin 10 mg tablet 10 mg PO QPM cholesterol 02/14/22 01/27/24 History cyclobenzaprine 5 mg tablet 5 mg PO QPM muscle pain 02/14/22 01/27/24 History albuterol sulfate 90 mcg/actuation 2 puff inhalation QID PRN wheezing 01/27/24 01/27/24 History aerosol inhaler (Ventolin HFA) fluticasone propionate 50 1 spray intranasal BID allergies 01/27/24 01/27/24 History mcg/actuation nasal spray,suspension Allergies Allergies Allergy/AdvReac Type Severity Reaction Status Date / Time Penicillins Allergy Verified 11/30/23 05:44 WASP Allergy Uncoded 07/13/20 13:34 Labs 01/28/24 05:10 01/28/24 05:10 Labs: Laboratory WBC 13.3 X10^3/uL (3.6-10.0) H 01/28/24 05:10 RBC 3.92 X10^6/uL (3.5-5.4) 01/28/24 05:10 Hgb 11.4 g/dL (12.0-16.0) L D 01/28/24 05:10 Hct 33.7 % (36.0-47.0) L 01/28/24 05:10 MCV 85.9 fL (80.0-100.0) 01/28/24 05:10 MCH 29.1 pg (27.0-34.0) 01/28/24 05:10 MCHC 33.9 g/dL (33.0-35.0) 01/28/24 05:10 RDW 15.2 % (11.6-16.5) 01/28/24 05:10 Plt Count 132 X10^3/uL (150.0-450.0) L 01/28/24 05:10 Plt Count Comment Adequate (ADEQUATE) 01/27/24 16:40 MPV 10.2 fL (7.4-11.0) 01/28/24 05:10 Neut % (Auto) 86.5 % (42.0-75.0) H 01/28/24 05:10 Lymph % (Auto) 7.4 % (21.0-51.0) L 01/28/24 05:10 [place] % (Auto) 5.9 % (0.0-13.0) 01/28/24 05:10 Eos % (Auto) 0.0 % (0.9-2.9) L 01/28/24 05:10 Baso % (Auto) 0.2 % (0.2-1.0) 01/28/24 05:10 Neut # (Auto) 11.5 x10^3/uL (2.2-4.8) H 01/28/24 05:10 Lymph # (Auto) 1.0 X10^3/uL (1.3-2.9) L 01/28/24 05:10 [place] # (Auto) 0.8 x10^3/uL (0.3-0.8) 01/28/24 05:10 Eos # (Auto) 0.0 x10^3/uL (0.0-0.2) 01/28/24 05:10 Baso # (Auto) 0.0 X10^3/uL (0.0-0.1) 01/28/24 05:10 Absolute Nucleated RBC 0.1 /100WBC 01/28/24 05:10 Total Counted 100 01/27/24 16:40 Neutrophils % (Manual) 90 % (39-76) H 01/27/24 16:40 Lymphocytes % (Manual) 9 % (13-43) L 01/27/24 16:40 Monocytes % (Manual) 1 % (4-9) L 01/27/24 16:40 Plt Morphology Comment Normal (NORMAL) 01/27/24 16:40 RBC Morphology Normal (NORMAL) 01/27/24 16:40 Sodium 144 mmol/L (136-145) 01/28/24 05:10 Corrected Sodium TNP 01/28/24 05:10 Potassium 4.0 mmol/L (3.5-5.1) 01/28/24 05:10 Chloride 107 mmol/L (98-107) 01/28/24 05:10 Carbon Dioxide 29.9 mmol/L (21-32) 01/28/24 05:10 BUN 10 mg/dL (7-18) 01/28/24 05:10 Creatinine 0.93 mg/dL (0.55-1.02) 01/28/24 05:10 Est GFR (MDRD) Af Amer > 60 (>60) 01/28/24 05:10 Est GFR (MDRD) Non-Af > 60 (>60) 01/28/24 05:10 Glucose 104 mg/dL (65-99) H 01/28/24 05:10 Calcium 8.1 mg/dL (8.5-10.1) L 01/28/24 05:10 Corrected Calcium 9.4 mg/dL (8.5-10.1) 01/28/24 05:10 Total Bilirubin 0.80 mg/dL (0.2-1.0) 01/28/24 05:10 AST 74 Units/L (15-37) H 01/28/24 05:10 ALT 70 Units/L (12-78) 01/28/24 05:10 Alkaline Phosphatase 129 Units/L (46-116) H 01/28/24 05:10 Total Protein 5.8 g/dL (6.4-8.2) L 01/28/24 05:10 Albumin 2.4 g/dL (3.4-5.0) L 01/28/24 05:10 Globulin 3.4 g/dL (2.5-4.5) 01/28/24 05:10 Albumin/Globulin Ratio 0.7 Ratio (1.1-2.1) L 01/28/24 05:10 Amylase 446 Units/L (25-115) H 01/28/24 05:10 Lipase 534 Units/L (16-77) H 01/28/24 05:10 Specimen Type Clean catch urine 01/27/24 23:07 Urine Color Dark yellow (YELLOW) 01/27/24 23:07 Urine Appearance Hazy (CLEAR) 01/27/24 23:07 Urine pH 6.0 (5.0 - 8.0) 01/27/24 23:07 Ur Specific [place] 1.010 (1.000-1.030) 01/27/24 23:07 Urine Protein 1+ (NEGATIVE) 01/27/24 23:07 Urine Glucose (UA) Negative (NEGATIVE) 01/27/24 23:07 Urine Ketones Negative (NEGATIVE) 01/27/24 23:07 Urine Blood 1+ (NEGATIVE) 01/27/24 23:07 Urine Nitrite Negative (NEGATIVE) 01/27/24 23:07 Urine Bilirubin Negative (NEGATIVE) 01/27/24 23:07 Urine Urobilinogen 1+ (NORMAL) 01/27/24 23:07 Ur Leukocyte Esterase Negative (NEGATIVE) 01/27/24 23:07 Urine RBC 5-10 /HPF (0-3) A 01/27/24 23:07 Urine WBC 0-2 /HPF (0-5) 01/27/24 23:07 Ur Squamous Epith Cells Few /HPF (NEGATIVE) 01/27/24 23:07 Amorphous Sediment 1+ /HPF (NEGATIVE) 01/27/24 23:07 Urine Bacteria Trace /HPF (NEGATIVE) 01/27/24 23:07 Coarse Granular Casts Rare /HPF (NEGATIVE) 01/27/24 23:07 Urine Mucus Few /HPF (NEGATIVE) 01/27/24 23:07 Ur Culture Indicated? No/not indicated 01/27/24 23:07 SARS-CoV-2 (PCR) Negative (NEGATIVE) 01/27/24 15:11 Influenza Type A (PCR) Negative (NEGATIVE) 01/27/24 15:11 Influenza Type B (PCR) Negative (NEGATIVE) 01/27/24 15:11 RSV (PCR) Negative (NEGATIVE) 01/27/24 15:11 Physical Exam Vital Signs: Vital Signs Temperature 98.1 F Pulse Rate [Left] 67 Respiratory Rate 19 Blood Pressure [Left Arm] 94/52 O2 Sat by Pulse Oximetry 98 Assessment/Plan (1) Acute pancreatitis: Qualifiers: Pancreatitis type: biliary Acute pancreatitis complication: no in fection or necrosis Qualified Code(s): K85.10 - Biliary acute pancreatitis without necrosis or infection Narrative Support Text: IVFs, surgery consult, clear liquid diet. Status: Acute (2) Essential hypertension: Narrative Support Text: Hold home meds today. Status: Chronic (3) Type 2 diabetes mellitus without complications: Qualifiers: Diabetes mellitus intermediate card tender insulin use: without intermediate card tender use Qualified Code(s): E11.9 - Type 2 diabetes mellitus without complications Narrative Support Text: SSI. Status: Acute (4) Mixed hyperlipidemia: Narrative Support Text: Hold statin for now. Status: Chronic (5) Simple chronic bronchitis: Narrative Support Text: Brandon prn. Status: Chronic
--- NOTE | 2024-01-28 15:00 | DR.PROGNOT ---
HOSPITAL PROGRESS NOTE Progress Note for Day of: Progress Note Date: 01/28/24 Chief Complaint Chief Complaint: less abdominal pain today . no nausea , no vomiting .. Bilirubin is normal today ..mild elevated Alk Phs. CT possible CBD stone at the distaL cbd . AFEBRILE . Past Medical Family Social History Allergies: Allergies Penicillins Allergy (Verified 11/30/23 05:44) WASP Allergy (Uncoded 07/13/20 13:34) Vital Signs Vital Signs: Vital Signs Temperature 97.2 F Temperature 97.9 F Pulse Rate [Left] 78 Pulse Rate [Left] 58 Respiratory Rate 18 Respiratory Rate 19 Blood Pressure [Left Arm] 103/53 Blood Pressure [Left Arm] 100/48 Blood Pressure [Left Arm] 99/53 O2 Sat by Pulse Oximetry 98 O2 Sat by Pulse Oximetry 98 Physical Exam Oriented: Normal Eyes: Normal Ear: Normal Nose: Normal Throat: Normal Respiratory: Normal Cardiovascular: Normal GI:Auscultation: Decreased GI:Palpation: Normal GI: Tenderness: LUQ, Epigastric and Other (MODERATE UPPER ABDOMINAL TENDRNESS , bs HYPOACTIVE ..) Speech Pattern: Clear and Appropriate Laboratory and Diagnostics 01/28/24 05:10 01/28/24 05:10 Labs: Laboratory WBC 13.3 X10^3/uL (3.6-10.0) H 01/28/24 05:10 RBC 3.92 X10^6/uL (3.5-5.4) 01/28/24 05:10 Hgb 11.4 g/dL (12.0-16.0) L D 01/28/24 05:10 Hct 33.7 % (36.0-47.0) L 01/28/24 05:10 MCV 85.9 fL (80.0-100.0) 01/28/24 05:10 MCH 29.1 pg (27.0-34.0) 01/28/24 05:10 MCHC 33.9 g/dL (33.0-35.0) 01/28/24 05:10 RDW 15.2 % (11.6-16.5) 01/28/24 05:10 Plt Count 132 X10^3/uL (150.0-450.0) L 01/28/24 05:10 Plt Count Comment Adequate (ADEQUATE) 01/27/24 16:40 MPV 10.2 fL (7.4-11.0) 01/28/24 05:10 Neut % (Auto) 86.5 % (42.0-75.0) H 01/28/24 05:10 Lymph % (Auto) 7.4 % (21.0-51.0) L 01/28/24 05:10 [place] % (Auto) 5.9 % (0.0-13.0) 01/28/24 05:10 Eos % (Auto) 0.0 % (0.9-2.9) L 01/28/24 05:10 Baso % (Auto) 0.2 % (0.2-1.0) 01/28/24 05:10 Neut # (Auto) 11.5 x10^3/uL (2.2-4.8) H 01/28/24 05:10 Lymph # (Auto) 1.0 X10^3/uL (1.3-2.9) L 01/28/24 05:10 [place] # (Auto) 0.8 x10^3/uL (0.3-0.8) 01/28/24 05:10 Eos # (Auto) 0.0 x10^3/uL (0.0-0.2) 01/28/24 05:10 Baso # (Auto) 0.0 X10^3/uL (0.0-0.1) 01/28/24 05:10 Absolute Nucleated RBC 0.1 /100WBC 01/28/24 05:10 Total Counted 100 01/27/24 16:40 Neutrophils % (Manual) 90 % (39-76) H 01/27/24 16:40 Lymphocytes % (Manual) 9 % (13-43) L 01/27/24 16:40 Monocytes % (Manual) 1 % (4-9) L 01/27/24 16:40 Plt Morphology Comment Normal (NORMAL) 01/27/24 16:40 RBC Morphology Normal (NORMAL) 01/27/24 16:40 Sodium 144 mmol/L (136-145) 01/28/24 05:10 Corrected Sodium TNP 01/28/24 05:10 Potassium 4.0 mmol/L (3.5-5.1) 01/28/24 05:10 Chloride 107 mmol/L (98-107) 01/28/24 05:10 Carbon Dioxide 29.9 mmol/L (21-32) 01/28/24 05:10 BUN 10 mg/dL (7-18) 01/28/24 05:10 Creatinine 0.93 mg/dL (0.55-1.02) 01/28/24 05:10 Est GFR (MDRD) Af Amer > 60 (>60) 01/28/24 05:10 Est GFR (MDRD) Non-Af > 60 (>60) 01/28/24 05:10 Glucose 104 mg/dL (65-99) H 01/28/24 05:10 Calcium 8.1 mg/dL (8.5-10.1) L 01/28/24 05:10 Corrected Calcium 9.4 mg/dL (8.5-10.1) 01/28/24 05:10 Total Bilirubin 0.80 mg/dL (0.2-1.0) 01/28/24 05:10 AST 74 Units/L (15-37) H 01/28/24 05:10 ALT 70 Units/L (12-78) 01/28/24 05:10 Alkaline Phosphatase 129 Units/L (46-116) H 01/28/24 05:10 Total Protein 5.8 g/dL (6.4-8.2) L 01/28/24 05:10 Albumin 2.4 g/dL (3.4-5.0) L 01/28/24 05:10 Globulin 3.4 g/dL (2.5-4.5) 01/28/24 05:10 Albumin/Globulin Ratio 0.7 Ratio (1.1-2.1) L 01/28/24 05:10 Amylase 446 Units/L (25-115) H 01/28/24 05:10 Lipase 534 Units/L (16-77) H 01/28/24 05:10 Specimen Type Clean catch urine 01/27/24 23:07 Urine Color Dark yellow (YELLOW) 01/27/24 23:07 Urine Appearance Hazy (CLEAR) 01/27/24 23:07 Urine pH 6.0 (5.0 - 8.0) 01/27/24 23:07 Ur Specific [place] 1.010 (1.000-1.030) 01/27/24 23:07 Urine Protein 1+ (NEGATIVE) 01/27/24 23:07 Urine Glucose (UA) Negative (NEGATIVE) 01/27/24 23:07 Urine Ketones Negative (NEGATIVE) 01/27/24 23:07 Urine Blood 1+ (NEGATIVE) 01/27/24 23:07 Urine Nitrite Negative (NEGATIVE) 01/27/24 23:07 Urine Bilirubin Negative (NEGATIVE) 01/27/24 23:07 Urine Urobilinogen 1+ (NORMAL) 01/27/24 23:07 Ur Leukocyte Esterase Negative (NEGATIVE) 01/27/24 23:07 Urine RBC 5-10 /HPF (0-3) A 01/27/24 23:07 Urine WBC 0-2 /HPF (0-5) 01/27/24 23:07 Ur Squamous Epith Cells Few /HPF (NEGATIVE) 01/27/24 23:07 Amorphous Sediment 1+ /HPF (NEGATIVE) 01/27/24 23:07 Urine Bacteria Trace /HPF (NEGATIVE) 01/27/24 23:07 Coarse Granular Casts Rare /HPF (NEGATIVE) 01/27/24 23:07 Urine Mucus Few /HPF (NEGATIVE) 01/27/24 23:07 Ur Culture Indicated? No/not indicated 01/27/24 23:07 SARS-CoV-2 (PCR) Negative (NEGATIVE) 01/27/24 15:11 Influenza Type A (PCR) Negative (NEGATIVE) 01/27/24 15:11 Influenza Type B (PCR) Negative (NEGATIVE) 01/27/24 15:11 RSV (PCR) Negative (NEGATIVE) 01/27/24 15:11 Assessment and Plan 1: ACUTE PANCREATITIS , POSSIBLE cbd STONE . ON IVF and ABT . MRCP in AM 2: GERD and esophagitis , dysphagia . future EGD . 3: COPD from smoking ..
[2024-01-28] MEDS: NICOTINE PATCH TD SCH (18:09)
[2024-01-28] MEDS: MORPHINE SULFATE INJ 2 MG INJ IVP PRN (18:19)
[2024-01-28] MEDS: LEVAQUIN PREMIX IV 500 MG 500 MG/100 ML BAG IV SCH (21:48)
[2024-01-29 05:32] LABS: HEMOGLOBIN 10.1 g/dL (12.0-16.0); WHITE BLOOD COUNT 9.3 X10^3/uL (3.6-10.0)
[2024-01-29 05:49] LABS: BASOPHILS % (AUTO) 0.2 % (0.2-1.0); EOSINOPHILS # (AUTO) 0.1 x10^3/uL (0.0-0.2); EOSINOPHILS % (AUTO) 0.8 % (0.9-2.9); HEMATOCRIT 30.1 % (36.0-47.0); LYMPHOCYTES # (AUTO) 1.5 X10^3/uL (1.3-2.9); MEAN CORPUSCULAR HEMOGLOBIN 28.9 pg (27.0-34.0); MEAN CORPUSCULAR HGB CONC 33.6 g/dL (33.0-35.0); MEAN PLATELET VOLUME 10.5 fL (7.4-11.0); MONOCYTES # (AUTO) 0.6 x10^3/uL (0.3-0.8); MONOCYTES % (AUTO) 6.3 % (0.0-13.0); NEUTROPHILS # (AUTO) 7.1 x10^3/uL (2.2-4.8); NEUTROPHILS % (AUTO) 76.7 % (42.0-75.0); PLATELET COUNT 119 X10^3/uL (150.0-450.0); RED CELL DISTRIBUTION WIDTH 14.9 % (11.6-16.5)
[2024-01-29 05:55] LABS: ALANINE AMINOTRANSFERASE 40 Units/L (12-78); ALBUMIN 2.1 g/dL (3.4-5.0); ALKALINE PHOSPHATASE 96 Units/L (46-116); AMYLASE 138 Units/L (25-115); ASPARTATE AMINO TRANSFERASE 30 Units/L (15-37); BLOOD UREA NITROGEN 7 mg/dL (7-18); CALCIUM 7.9 mg/dL (8.5-10.1); CARBON DIOXIDE 26.7 mmol/L (21-32); CHLORIDE 109 mmol/L (98-107); COR CA(FOR HYPOALB) 9.4 mg/dL (8.5-10.1); CREATININE 0.71 mg/dL (0.55-1.02); GLUCOSE 84 mg/dL (65-99); LIPASE 233 Units/L (16-77); POTASSIUM 3.4 mmol/L (3.5-5.1); SODIUM 140 mmol/L (136-145); TOTAL PROTEIN 5.3 g/dL (6.4-8.2); eGFR NON BLACK RACES > 60 (>60)
[2024-01-29] MEDS ORDERED: CONSULT PHARMACY - POTASSIUM & MAGNESIUM XX SCH (07:00)
--- NOTE | 2024-01-29 08:39 | DR.PROGNOT ---
HOSPITAL PROGRESS NOTE Progress Note for Day of: Progress Note Date: 01/29/24 Chief Complaint Chief Complaint: less abdominal pain today . no nausea , no vomiting .. Bilirubin and liver function tests are all normal. Potassium is 3.4, BUN and creatinine are normal. CT possible CBD stone at the distaL cbd . AFEBRILE . Past Medical Family Social History Allergies: Allergies Penicillins Allergy (Verified 11/30/23 05:44) WASP Allergy (Uncoded 07/13/20 13:34) Vital Signs Vital Signs: Vital Signs Temperature 99.0 F Pulse Rate [Left] 76 Respiratory Rate 18 Blood Pressure [Left Arm] 103/57 O2 Sat by Pulse Oximetry 96 Physical Exam Oriented: Normal Eyes: Normal Ear: Normal Nose: Normal Throat: Normal Respiratory: Normal Cardiovascular: Normal GI:Auscultation: Decreased GI:Palpation: Normal GI: Tenderness: LUQ, Epigastric and Other (MODERATE UPPER ABDOMINAL TENDRNESS , bs HYPOACTIVE ..) Speech Pattern: Clear and Appropriate Laboratory and Diagnostics 01/29/24 05:16 01/29/24 05:16 Labs: Laboratory WBC 9.3 X10^3/uL (3.6-10.0) 01/29/24 05:16 RBC 3.50 X10^6/uL (3.5-5.4) 01/29/24 05:16 Hgb 10.1 g/dL (12.0-16.0) L 01/29/24 05:16 Hct 30.1 % (36.0-47.0) L 01/29/24 05:16 MCV 86.0 fL (80.0-100.0) 01/29/24 05:16 MCH 28.9 pg (27.0-34.0) 01/29/24 05:16 MCHC 33.6 g/dL (33.0-35.0) 01/29/24 05:16 RDW 14.9 % (11.6-16.5) 01/29/24 05:16 Plt Count 119 X10^3/uL (150.0-450.0) L 01/29/24 05:16 Plt Count Comment Adequate (ADEQUATE) 01/27/24 16:40 MPV 10.5 fL (7.4-11.0) 01/29/24 05:16 Neut % (Auto) 76.7 % (42.0-75.0) H 01/29/24 05:16 Lymph % (Auto) 16.0 % (21.0-51.0) L 01/29/24 05:16 [place] % (Auto) 6.3 % (0.0-13.0) 01/29/24 05:16 Eos % (Auto) 0.8 % (0.9-2.9) L 01/29/24 05:16 Baso % (Auto) 0.2 % (0.2-1.0) 01/29/24 05:16 Neut # (Auto) 7.1 x10^3/uL (2.2-4.8) H 01/29/24 05:16 Lymph # (Auto) 1.5 X10^3/uL (1.3-2.9) 01/29/24 05:16 [place] # (Auto) 0.6 x10^3/uL (0.3-0.8) 01/29/24 05:16 Eos # (Auto) 0.1 x10^3/uL (0.0-0.2) 01/29/24 05:16 Baso # (Auto) 0.0 X10^3/uL (0.0-0.1) 01/29/24 05:16 Absolute Nucleated RBC 0.0 /100WBC 01/29/24 05:16 Total Counted 100 01/27/24 16:40 Neutrophils % (Manual) 90 % (39-76) H 01/27/24 16:40 Lymphocytes % (Manual) 9 % (13-43) L 01/27/24 16:40 Monocytes % (Manual) 1 % (4-9) L 01/27/24 16:40 Plt Morphology Comment Normal (NORMAL) 01/27/24 16:40 RBC Morphology Normal (NORMAL) 01/27/24 16:40 Sodium 140 mmol/L (136-145) 01/29/24 05:16 Corrected Sodium TNP 01/29/24 05:16 Potassium 3.4 mmol/L (3.5-5.1) L 01/29/24 05:16 Chloride 109 mmol/L (98-107) H 01/29/24 05:16 Carbon Dioxide 26.7 mmol/L (21-32) 01/29/24 05:16 BUN 7 mg/dL (7-18) 01/29/24 05:16 Creatinine 0.71 mg/dL (0.55-1.02) 01/29/24 05:16 Est GFR (MDRD) Af Amer > 60 (>60) 01/29/24 05:16 Est GFR (MDRD) Non-Af > 60 (>60) 01/29/24 05:16 Glucose 84 mg/dL (65-99) 01/29/24 05:16 Calcium 7.9 mg/dL (8.5-10.1) L 01/29/24 05:16 Corrected Calcium 9.4 mg/dL (8.5-10.1) 01/29/24 05:16 Total Bilirubin 0.60 mg/dL (0.2-1.0) 01/29/24 05:16 AST 30 Units/L (15-37) 01/29/24 05:16 ALT 40 Units/L (12-78) 01/29/24 05:16 Alkaline Phosphatase 96 Units/L (46-116) 01/29/24 05:16 Total Protein 5.3 g/dL (6.4-8.2) L 01/29/24 05:16 Albumin 2.1 g/dL (3.4-5.0) L 01/29/24 05:16 Globulin 3.2 g/dL (2.5-4.5) 01/29/24 05:16 Albumin/Globulin Ratio 0.7 Ratio (1.1-2.1) L 01/29/24 05:16 Amylase 138 Units/L (25-115) H 01/29/24 05:16 Lipase 233 Units/L (16-77) H 01/29/24 05:16 Specimen Type Clean catch urine 01/27/24 23:07 Urine Color Dark yellow (YELLOW) 01/27/24 23:07 Urine Appearance Hazy (CLEAR) 01/27/24 23:07 Urine pH 6.0 (5.0 - 8.0) 01/27/24 23:07 Ur Specific [place] 1.010 (1.000-1.030) 01/27/24 23:07 Urine Protein 1+ (NEGATIVE) 01/27/24 23:07 Urine Glucose (UA) Negative (NEGATIVE) 01/27/24 23:07 Urine Ketones Negative (NEGATIVE) 01/27/24 23:07 Urine Blood 1+ (NEGATIVE) 01/27/24 23:07 Urine Nitrite Negative (NEGATIVE) 01/27/24 23:07 Urine Bilirubin Negative (NEGATIVE) 01/27/24 23:07 Urine Urobilinogen 1+ (NORMAL) 01/27/24 23:07 Ur Leukocyte Esterase Negative (NEGATIVE) 01/27/24 23:07 Urine RBC 5-10 /HPF (0-3) A 01/27/24 23:07 Urine WBC 0-2 /HPF (0-5) 01/27/24 23:07 Ur Squamous Epith Cells Few /HPF (NEGATIVE) 01/27/24 23:07 Amorphous Sediment 1+ /HPF (NEGATIVE) 01/27/24 23:07 Urine Bacteria Trace /HPF (NEGATIVE) 01/27/24 23:07 Coarse Granular Casts Rare /HPF (NEGATIVE) 01/27/24 23:07 Urine Mucus Few /HPF (NEGATIVE) 01/27/24 23:07 Ur Culture Indicated? No/not indicated 01/27/24 23:07 SARS-CoV-2 (PCR) Negative (NEGATIVE) 01/27/24 15:11 Influenza Type A (PCR) Negative (NEGATIVE) 01/27/24 15:11 Influenza Type B (PCR) Negative (NEGATIVE) 01/27/24 15:11 RSV (PCR) Negative (NEGATIVE) 01/27/24 15:11 Assessment and Plan 1: Subsiding ACUTE PANCREATITIS , POSSIBLE cbd STONE . ON IVF and ABT . MRCP today. Low-fat diet. Patient could be discharged later on today and will follow next week in the office to arrange for upper endoscopy. 2: GERD and esophagitis , dysphagia . Patient will be followed in the office next week. 3: COPD from smoking ..
[2024-01-29] MEDS: K-DUR TAB 20 MEQ PO SCH (09:37)
[2024-01-29] MEDS: LOVENOX INJ 40 MG SYR SC SCH (09:37)
[2024-01-29 16:20] VITALS: BP 130/61; PULSE 68; RESP 20; TEMP 98; O2SAT 97
--- NOTE | 2024-01-29 17:23 | MRI ---
EXAM:MRCPHISTORY:PANCREATITIS;COMPARISON :None.TECHNIQUE:MRI imaging of the abdomen was obtained without the administration of intravenous contrast utilizing a routine protocol. MRCP was obtained utilizing a routine [id number] protocol with MIP reconstructions provided for further characterization.FINDINGS:Widening of the extrahepatic biliary duct to 1.5 cm in width.Central choledocholith in the common bile duct with the largest measuring 6 x 7 mm on coronal T2 fat-sat breath hold MRCP image 14.Edema adjacent to the margins of the pancreas; consistent with acute pancreatitis.No pancreatic duct dilatation.Liver, spleen and adrenal glands are grossly unremarkable.Imaged portion of the bowel is unremarkable.Atelectasis at the lung bases with small effusions.IMPRESSION:1. Several choledocholiths in the common bile duct; largest measuring 6 x 7 mm. Dilated extrahepatic biliary duct, likely secondary to the distal obstruction, measuring up to 1.5 cm in width.2. Acute pancreatitis.THIS IS AN ELECTRONICALLY VERIFIED FINAL [id number]/2024 5:14 PM - Electronically signed by Ruben Pat MD
--- NOTE | 2024-01-30 11:27 | PCM.DCPLAN ---
DISCHARGE SUMMARY Admission Date Date of Admission: 01/27/24 Discharge Date Discharge Date: 01/29/24 Admission Diagnoses (1) Acute pancreatitis: Status: Acute (2) Essential hypertension: Status: Chronic (3) Type 2 diabetes mellitus without complications: Status: Chronic (4) Mixed hyperlipidemia: Status: Chronic (5) Simple chronic bronchitis: Status: Chronic Discharge Medications Discharge Medications: Home Medication List albuterol sulfate 90 mcg/actuation aerosol inhaler (Ventolin HFA) 2 puff inhalation QID PRN wheezing 01/27/24 [History] fluticasone propionate 50 mcg/actuation nasal spray,suspension 1 spray intranasal BID allergies 01/27/24 [History] Prescriptions: Hospital Course Vital Signs: Vital Signs Temperature 98.2 F Pulse Rate [Left] 70 Respiratory Rate 17 Blood Pressure [Left Arm] 120/58 O2 Sat by Pulse Oximetry 96 Latest Lab Results: Laboratory Last Values WBC 9.3 X10^3/uL (3.6-10.0) 01/29/24 05:16 RBC 3.50 X10^6/uL (3.5-5.4) 01/29/24 05:16 Hgb 10.1 g/dL (12.0-16.0) L 01/29/24 05:16 Hct 30.1 % (36.0-47.0) L 01/29/24 05:16 MCV 86.0 fL (80.0-100.0) 01/29/24 05:16 MCH 28.9 pg (27.0-34.0) 01/29/24 05:16 MCHC 33.6 g/dL (33.0-35.0) 01/29/24 05:16 RDW 14.9 % (11.6-16.5) 01/29/24 05:16 Plt Count 119 X10^3/uL (150.0-450.0) L 01/29/24 05:16 Plt Count Comment Adequate (ADEQUATE) 01/27/24 16:40 MPV 10.5 fL (7.4-11.0) 01/29/24 05:16 Neut % (Auto) 76.7 % (42.0-75.0) H 01/29/24 05:16 Lymph % (Auto) 16.0 % (21.0-51.0) L 01/29/24 05:16 Holt % (Auto) 6.3 % (0.0-13.0) 01/29/24 05:16 Eos % (Auto) 0.8 % (0.9-2.9) L 01/29/24 05:16 Baso % (Auto) 0.2 % (0.2-1.0) 01/29/24 05:16 Neut # (Auto) 7.1 x10^3/uL (2.2-4.8) H 01/29/24 05:16 Lymph # (Auto) 1.5 X10^3/uL (1.3-2.9) 01/29/24 05:16 Holt # (Auto) 0.6 x10^3/uL (0.3-0.8) 01/29/24 05:16 Eos # (Auto) 0.1 x10^3/uL (0.0-0.2) 01/29/24 05:16 Baso # (Auto) 0.0 X10^3/uL (0.0-0.1) 01/29/24 05:16 Absolute Nucleated RBC 0.0 /100WBC 01/29/24 05:16 Total Counted 100 01/27/24 16:40 Neutrophils % (Manual) 90 % (39-76) H 01/27/24 16:40 Lymphocytes % (Manual) 9 % (13-43) L 01/27/24 16:40 Monocytes % (Manual) 1 % (4-9) L 01/27/24 16:40 Plt Morphology Comment Normal (NORMAL) 01/27/24 16:40 RBC Morphology Normal (NORMAL) 01/27/24 16:40 Sodium 140 mmol/L (136-145) 01/29/24 05:16 Corrected Sodium TNP 01/29/24 05:16 Potassium 3.4 mmol/L (3.5-5.1) L 01/29/24 05:16 Chloride 109 mmol/L (98-107) H 01/29/24 05:16 Carbon Dioxide 26.7 mmol/L (21-32) 01/29/24 05:16 BUN 7 mg/dL (7-18) 01/29/24 05:16 Creatinine 0.71 mg/dL (0.55-1.02) 01/29/24 05:16 Est GFR (MDRD) Af Amer > 60 (>60) 01/29/24 05:16 Est GFR (MDRD) Non-Af > 60 (>60) 01/29/24 05:16 Glucose 84 mg/dL (65-99) 01/29/24 05:16 Calcium 7.9 mg/dL (8.5-10.1) L 01/29/24 05:16 Corrected Calcium 9.4 mg/dL (8.5-10.1) 01/29/24 05:16 Total Bilirubin 0.60 mg/dL (0.2-1.0) 01/29/24 05:16 AST 30 Units/L (15-37) 01/29/24 05:16 ALT 40 Units/L (12-78) 01/29/24 05:16 Alkaline Phosphatase 96 Units/L (46-116) 01/29/24 05:16 Total Protein 5.3 g/dL (6.4-8.2) L 01/29/24 05:16 Albumin 2.1 g/dL (3.4-5.0) L 01/29/24 05:16 Globulin 3.2 g/dL (2.5-4.5) 01/29/24 05:16 Albumin/Globulin Ratio 0.7 Ratio (1.1-2.1) L 01/29/24 05:16 Amylase 138 Units/L (25-115) H 01/29/24 05:16 Lipase 233 Units/L (16-77) H 01/29/24 05:16 Specimen Type Clean catch urine 01/27/24 23:07 Urine Color Dark yellow (YELLOW) 01/27/24 23:07 Urine Appearance Hazy (CLEAR) 01/27/24 23:07 Urine pH 6.0 (5.0 - 8.0) 01/27/24 23:07 Ur Specific Fleming 1.010 (1.000-1.030) 01/27/24 23:07 Urine Protein 1+ (NEGATIVE) 01/27/24 23:07 Urine Glucose (UA) Negative (NEGATIVE) 01/27/24 23:07 Urine Ketones Negative (NEGATIVE) 01/27/24 23:07 Urine Blood 1+ (NEGATIVE) 01/27/24 23:07 Urine Nitrite Negative (NEGATIVE) 01/27/24 23:07 Urine Bilirubin Negative (NEGATIVE) 01/27/24 23:07 Urine Urobilinogen 1+ (NORMAL) 01/27/24 23:07 Ur Leukocyte Esterase Negative (NEGATIVE) 01/27/24 23:07 Urine RBC 5-10 /HPF (0-3) A 01/27/24 23:07 Urine WBC 0-2 /HPF (0-5) 01/27/24 23:07 Ur Squamous Epith Cells Few /HPF (NEGATIVE) 01/27/24 23:07 Amorphous Sediment 1+ /HPF (NEGATIVE) 01/27/24 23:07 Urine Bacteria Trace /HPF (NEGATIVE) 01/27/24 23:07 Coarse Granular Casts Rare /HPF (NEGATIVE) 01/27/24 23:07 Urine Mucus Few /HPF (NEGATIVE) 01/27/24 23:07 Ur Culture Indicated? No/not indicated 01/27/24 23:07 SARS-CoV-2 (PCR) Negative (NEGATIVE) 01/27/24 15:11 Influenza Type A (PCR) Negative (NEGATIVE) 01/27/24 15:11 Influenza Type B (PCR) Negative (NEGATIVE) 01/27/24 15:11 RSV (PCR) Negative (NEGATIVE) 01/27/24 15:11 Hospital Course: Patient admitted with obstructive pancreatitis. She responded well to fluids, s low return to eating, and pain medication. Labs and vitals improved steadily throughout admission. Surgery was consulted and advised an MRCP. MRCP did show multiple stones with pancreatitis and bile duct dilation. Surgery planned on doing an endoscopy next week and that they did not think she needed an intervention this week due to rapid improvement in her symptoms. Patient discharged in stable, improved condition to home. No medication changes as she has chronic narcotics at home. Follow-up with PCP in 3 days and surgery in a week. Well-developed female. No acute distress. Belly nontender with bowel sounds present. Belly also nondistended. Heart regular rate and rhythm. Lungs clear with good air movement today.
== END 2024-01-29 16:00 | disposition home or self-care (01) | DRG 440 ==
LOC: ER 13:40 → MED/SURG 19:41
PROVIDERS: ADMIT Family Medicine; ATTEND Family Medicine
DX: E11.65 Type 2 diabetes mellitus with hyperglycemia; Z72.0 Tobacco use; I10 Essential (primary) hypertension; R10.13 Epigastric pain; K85.10 Biliary acute pancreatitis without necrosis or infection; K21.00 Gastro-esophageal reflux disease with esophagitis, without bleeding; R11.2 Nausea with vomiting, unspecified; Z03.818 Encounter for observation for suspected exposure to other biological agents ruled out; E78.2 Mixed hyperlipidemia; R13.11 Dysphagia, oral phase; J41.0 Simple chronic bronchitis; K59.09 Other constipation